=== PATIENT | female | born 1985 | race Caucasian/White ===

== ENCOUNTER → 2020-03-02 | Outpatient (CLI) | payer OTHER | LOC: M PLALAB 14:23 | PROVIDERS: ATTEND Advanced Practice Midwife | DX: Z36.89 Encounter for other specified antenatal screening (principal) ==

== ENCOUNTER → 2020-03-30 | Outpatient (CLI) | payer OTHER ==
[2020-03-30 21:50] LABS: CHLAMYDIA DNA AMPLIFICATION NEGATIVE (NEGATIVE); GC DNA AMPLIFICATION NEGATIVE (NEGATIVE)
--- NOTE | 2020-03-31 02:04 | REP ---
Clinical: Anatomical evaluation. Comparison: None . Findings: Examination demonstrates a single live intrauterine in transverse (head to maternal right) presentation. motion is identified by technologist. Placenta is noted anterior and grade zero without evidence for placenta previa or abruption. Amniotic fluid volume is normal. Cervix measures 4.3 cm in length and appears closed. No evidence for nuchal cord. Gestational age by current measurements 17 weeks 6 days with DILLON 09/01/2020 . FHR equals 146 beats per minute. BPD 4.0 cm 18 weeks 1 day HC 15.0 cm 18 weeks 0 days AC 12.3 cm 18 weeks 0 days FL 2.6 cm 17 weeks 6 days HL 2.5 cm 17 weeks 6 days HC/AC ratio 1.21 Estimated weight 215 grams ( 49th percentile). Anatomical assessment demonstrates normal structures including cranium, choroid plexus, cavum, cerebellum/posterior fossa, facial features, lungs, four-chamber heart/ventricular outflow tracts, diaphragm, stomach, cord insertion/three-vessel cord, kidneys/bladder, and extremities. Impression: Single live intrauterine in transverse lie demonstrating appropriate estimated weight. Limited evaluation of the spine. Remainder of the anatomical assessment is complete and normal.
== END ==
LOC: M WHC 14:28
PROVIDERS: ATTEND Advanced Practice Midwife
DX: O09.522 Supervision of elderly multigravida, second trimester (principal); Z3A.17 17 weeks gestation of pregnancy

== ENCOUNTER → 2020-03-30 | Outpatient (REF) | payer OTHER ==
[2020-03-30 17:49] LABS: HEMATOCRIT 32.7 % (36.0-47.0); HEMOGLOBIN 10.8 g/dl (12.0-15.5); MEAN CORPUSCULAR HEMOGLOBIN 28.7 pg (27.0-33.0); PLATELET COUNT, AUTOMATED 269 10^3/uL (150-450); RED BLOOD COUNT 3.76 10^6/uL (4.00-5.40); WHITE BLOOD COUNT 7.8 10^3/uL (4.0-10.0)
[2020-03-31 11:14] LABS: HEPATITIS B SURFACE ANTIGEN NEGATIVE (NEGATIVE); HIV 1&2 SCREEN CENTAUR NEGATIVE (NEGATIVE)
== END ==
LOC: M PLALAB 15:55
PROVIDERS: ATTEND Advanced Practice Midwife
DX: O09.521 Supervision of elderly multigravida, first trimester (principal)

== ENCOUNTER → 2020-07-03 | Outpatient (CLI) | payer OTHER ==
[~2020-07-03] MED LIST: COLA100C5 PO; IBUP80TA PO; IRON325T2 PO; MAPA500T2 PO; PERCOCET PO
--- NOTE | 2020-08-04 07:56 | REP ---
OBSTETRIC ULTRASOUND CLINICAL: Follow-up anatomical assessment. COMPARISON: 06/02/2020. TECHNIQUE: Real-time obstetrical ultrasound using probed Array transducer with color Doppler evaluation. FINDINGS: Viable intrauterine identified in cephalic presentation. motion was identified by technologist. The placenta is anterior and grade 2 without evidence for placenta previa or abruption. Amniotic fluid volume is lower limits of normal (LISSETT equals 9.6). Current biometrical measurements correspond to 31 weeks 5 days gestational age with estimated date of delivery 09/01/2020. Estimated weight 1811 grams (46th percentile). heart rate equals 134 beats per minute. Anatomical assessment demonstrates normal spine, stomach, kidneys/bladder, three-vessel cord, and cord insertion. IMPRESSION: * Single live advanced gestation in cephalic presentation. * Amniotic fluid is lower normal. * In conjunction with the prior examination anatomical assessment is complete and normal. No gross anatomical abnormalities are identified. MTDD
== END ==
LOC: M WHC 07:02
PROVIDERS: ATTEND Specialist
DX: Z34.82 Encounter for supervision of other normal pregnancy, second trimester (principal)

== ENCOUNTER → 2020-07-31 | Outpatient (CLI) | payer OTHER ==
[2020-07-31 11:10] LABS: HEMATOCRIT 36.9 % (36.0-47.0); HEMOGLOBIN 11.6 g/dl (12.0-15.5); MEAN CORPUSCULAR HEMOGLOBIN 27.3 pg (27.0-33.0); MEAN CORPUSCULAR HGB CONC 31.4 g/dl (32.0-36.5); MEAN CORPUSCULAR VOLUME 86.8 fl (80.0-96.0); PLATELET COUNT, AUTOMATED 218 10^3/uL (150-450); RED BLOOD COUNT 4.25 10^6/uL (4.00-5.40); WHITE BLOOD COUNT 8.5 10^3/uL (4.0-10.0)
== END ==
LOC: M PLALAB 07:52
PROVIDERS: ATTEND Obstetrics & Gynecology
DX: O99.019 Anemia complicating pregnancy, unspecified trimester (principal); D64.9 Anemia, unspecified; Z3A.00 Weeks of gestation of pregnancy not specified

== ENCOUNTER → 2020-08-01 | Outpatient (CLI) | payer OTHER ==
--- NOTE | 2020-08-11 10:01 | REP ---
FOLLOW-UP OBSTETRICAL ULTRASOUND COMPARISON: 07/03/2020. FINDINGS: Ultrasound examination demonstrates a single live intrauterine in cephalic presentation. Placenta noted anteriorly and grade 2 without placenta previa or abruption. Amniotic fluid volume is normal. Gestational age by last menstrual period (LMP) 35 weeks 4 days with estimated date of delivery 09/01/2020. Gestational age by current measurements 35 weeks 0 days with estimated date of delivery 09/05/2020. heart rate 135 beats per minute. HC/AC ratio 1.00. Estimated weight 2627 grams (55th percentile). Amniotic fluid index (LISSETT) 10.4 cm (7.9-24.9). IMPRESSION: Single live advanced gestational age in cephalic presentation demonstrating appropriate estimated weight and interval growth. No gross abnormalities are identified. Amniotic fluid volume is normal. MTDD
== END ==
LOC: M WHC 07:44
PROVIDERS: ATTEND Obstetrics & Gynecology
DX: Z34.83 Encounter for supervision of other normal pregnancy, third trimester (principal); Z3A.35 35 weeks gestation of pregnancy

== ENCOUNTER 2020-08-02 17:39 | Outpatient (CLI) | payer OTHER ==
[~2020-08-02] VITALS: Ht 172.7 cm; Wt 78.2 kg
[2020-08-02 18:03] VITALS: BP 109/59
[2020-08-02] MEDS ORDERED: IRON325T2 PO (18:17)
[2020-08-02] MEDS ORDERED: COLA100C5 PO (18:17)
[2020-08-02] MEDS ORDERED: MAPA500T2 PO (18:17)
[2020-08-02 18:40] VITALS: BP 119/71
== END 2020-08-02 18:52 | disposition home or self-care (01) ==
LOC: M LDO 17:39
PROVIDERS: ATTEND Advanced Practice Midwife
DX: O47.03 False labor before 37 completed weeks of gestation, third trimester (principal); Z3A.35 35 weeks gestation of pregnancy
CPT/HCPCS: 59025; G0378; G0463

== ENCOUNTER → 2020-08-09 | Outpatient (REF) | payer OTHER | LOC: M SFHCWAGY 13:13 | PROVIDERS: ATTEND Obstetrics & Gynecology | DX: Z34.83 Encounter for supervision of other normal pregnancy, third trimester (principal); Z3A.00 Weeks of gestation of pregnancy not specified ==

== ENCOUNTER → 2020-08-16 | Outpatient (CLI) | payer OTHER | LOC: M LABSMTC 09:45 | PROVIDERS: ATTEND Anesthesiology | DX: Z11.59 Encounter for screening for other viral diseases (principal) ==

== ENCOUNTER 2020-08-18 05:23 | Inpatient (IN) | payer OTHER ==
[~2020-08-18] VITALS: Ht 172.7 cm; Wt 79.7 kg
[2020-08-18] VITALS (9 sets, daily range): BP systolic 99–120; BP diastolic 50–76
[~2020-08-18 05:23] MED LIST changes: -IBUP80TA PO; -PERCOCET PO
[2020-08-18 06:21] LABS: HEMATOCRIT 37.1 % (36.0-47.0); HEMOGLOBIN 11.9 g/dl (12.0-15.5); MEAN CORPUSCULAR HEMOGLOBIN 27.5 pg (27.0-33.0); MEAN CORPUSCULAR HGB CONC 32.1 g/dl (32.0-36.5); MEAN CORPUSCULAR VOLUME 85.7 fl (80.0-96.0); PLATELET COUNT, AUTOMATED 219 10^3/uL (150-450); RED BLOOD COUNT 4.33 10^6/uL (4.00-5.40); WHITE BLOOD COUNT 7.9 10^3/uL (4.0-10.0)
[2020-08-18] MEDS ORDERED: LACTATED RINGER'S 1000 ML IV STA (06:32)
[2020-08-18] MEDS ORDERED: LR 1,000 ML IV SCH ×2 (06:32→10:00)
[2020-08-18] MEDS ORDERED: BICITRA 30ML SOLN UDC PO ONE (06:45)
[2020-08-18] MEDS ORDERED: MORPHINE PRES-FREE INJ 10 MG/10 ML VIAL (J2274) As Ordered ONE (07:14)
[2020-08-18] MEDS ORDERED: OXYTOCIN INJ 10 UNITS/ML VIAL (J2590) As Ordered ONE ×2 (07:17→07:18)
[2020-08-18] MEDS ORDERED: ceFAZolin 2 GM/D5W 50 ML IV BAG (J0690 PER 500MG) As Ordered ONE (07:19)
--- NOTE | 2020-08-18 07:43 | HPEPDOC ---
Obstetrical History & Physical General Date of Admission Aug 18, 2020 at 05:23 History of Present Illness 35-year-old at 38+0 weeks gestation. Presents for a repeat LTCS / BTL. She denies vaginal bleeding, loss of fluid or painful, frequent uterine contractions. She reports regular movement. She denies headache, visual changes, right upper quadrant pain, shortness of breath or chest pain. course complicated by: Concern for uterine window; persistent increasing pelvic / lower abdominal pain, history of uterine window in previous . AMA: NIPT low risk. Chief Complaint: section Care Care: Good Care Past Medical History Past Medical History Medical History PMH: Tam's palsy Surgical history: Low transverse section 4 Social history: Former smoker, no EtoH/drug use Famhx: MS (father) ALL: PCN (childhood, rash) [employer]: none OB: LTCS x 4. Possible uterine window at 37 weeks last . Social History Psychosocial History: No pertinent psych hx * Smoker: non-smoker Alcohol: Denies Drugs: denies Allergies Coded Allergies: Penicillins (Verified Allergy, Intermediate, HIVES, 08/02/20) Medications Scheduled Docusate Sodium (Colace) 100 Mg Capsule, 1 CAP PO BID Ferrous Sulfate (Iron) 325 Mg Tablet, 1 TAB PO TID Scheduled PRN Acetaminophen (Mapap) 500 Mg Tablet, 1,000 MG PO Q6HP PRN for PAIN OR FEVER Physical Examination Physical Examination GENERAL: Alert and oriented times three. ABDOMEN: Gravid and non-tender to touch. FETUS: vertex (VTX) by Master. HEART RATE: Regular rate and rhythm. LUNGS: Clear to auscultation (CTA). EXTREMITIES: No edema. No clonus. EFM: FHR category 1 [place]: Contraction pattern not present Vital Signs/I&O Vital Signs Date Time Temp Pulse Resp B/P (MAP) Pulse Ox O2 Delivery O2 Flow Rate FiO2 08/18/20 05:53 97.5 76 120/76 (91) Laboratory Data 24H LABS Laboratory Tests 2 08/17/20 22:14: Serology Scanned Report Hepatitis B Testing 08/18/20 06:08: Nucleated Red Blood Cells % (auto) 0.0 CBC/BMP Laboratory Tests 08/18/20 06:08 Assessment Heart Rate (FHR): 140 Variability: Moderate Accelerations: Positive Decelerations: None Tocometer Contractions: No Assessment/Plan Assessment 35-year old at 38+0 weeks gestation. Dx: Concern for uterine window/dehiscence, satisfied parity. Reassuring maternal and status. Plan Admit and orient. Silk Folder and consent. RLTCS/BTL Ancef 2g IV HARESH EISENBERG DO Aug 18, 2020 07:43
[2020-08-18] MEDS ORDERED: ONDANSETRON 4MG/2ML VIAL IV PRN ×2 (07:44→10:00)
[2020-08-18] MEDS ORDERED: diphenhydrAMINE 50MG/ML VIAL (J1200) IV PRN (07:44)
[2020-08-18] MEDS ORDERED: METOCLOPRAMIDE INJ 10MG/2ML VIAL (J2765 PER 1) IV PRN ×2 (07:44→10:00)
[2020-08-18] MEDS ORDERED: NALBUPHINE HCL 10 MG/ML AMP (J2300) IV PRN (07:44)
[2020-08-18] MEDS ORDERED: NALOXONE INJ 0.4MG/1ML VIAL (J2310 PER 1MG) IV PRN ×2 (07:44)
[2020-08-18] MEDS ORDERED: KETOROLAC 60MG 2ML VIAL As Ordered ONE (08:14)
[2020-08-18] MEDS ORDERED: dexameTHASONE 4 MG/ML 1ML VIAL (J1100 PER 1MG) As Ordered ONE (08:14)
[2020-08-18] MEDS ORDERED: ONDANSETRON 4MG/2ML VIAL As Ordered ONE (08:14)
[2020-08-18] MEDS ORDERED: OXYTOCIN DRIP 30 UNITS in IV 1 EA IV SCH (09:20)
[2020-08-18] MEDS ORDERED: OXYTOCIN 30 UNITS IN 0.9% NaCl 500ML IV BAG (J2590) As Ordered ONE (09:20)
[2020-08-18] MEDS ORDERED: IBUP80TA PO (09:24)
[2020-08-18] MEDS ORDERED: COLA100C5 PO (09:25)
[2020-08-18] MEDS ORDERED: PERCOCET PO (09:26)
[2020-08-18] MEDS ORDERED: KETOROLAC 30 MG/ML 1ML VIAL IV SCH (09:30)
[2020-08-18] MEDS ORDERED: RHOGAM 300 MCG (1500 IU) INJ (J2790) IM SCH (09:30)
[2020-08-18] MEDS ORDERED: ONDANSETRON 4 MG TAB PO PRN (09:30)
[2020-08-18] MEDS ORDERED: PROMETHAZINE 25 MG TAB PO PRN (09:30)
[2020-08-18] MEDS ORDERED: MEASLES,MUMPS,RUBELLA VACCINE INJ (MMR-II) (90707) SC SCH (09:30)
[2020-08-18] MEDS ORDERED: ACETAMINOPHEN 500 MG TAB PO PRN (09:30)
[2020-08-18] MEDS ORDERED: fentaNYL 100 MCG/2 ML INJECTION (J3010) IV PRN (10:00)
[2020-08-18] MEDS ORDERED: PERCOCET 5MG/325MG TAB PO PRN (10:00)
[2020-08-18] MEDS ORDERED: PERCOCET 5MG/325MG TAB As Ordered ONE (10:03)
[2020-08-18] MEDS ORDERED: fentaNYL 100 MCG/2 ML INJECTION (J3010) As Ordered ONE (10:03)
[2020-08-18] MEDS: PERCOCET 5MG/325MG TAB PO PRN ×2 (10:14→18:14)
[2020-08-18] MEDS: LR 1,000 ML IV SCH ×2 (12:27→17:20)
[2020-08-18] MEDS: KETOROLAC 30 MG/ML 1ML VIAL IV SCH ×2 (14:58→20:48)
[2020-08-18] MEDS: PRENATAL VITAMINS CHEWABLE TABLET PO SCH (17:32)
[2020-08-18] MEDS: DOCUSATE SODIUM 100 MG CAP PO SCH (20:48)
[2020-08-19] VITALS (7 sets, daily range): BP systolic 102–117; BP diastolic 52–68
[2020-08-19] MEDS: LR 1,000 ML IV SCH (01:20)
[2020-08-19] MEDS: KETOROLAC 30 MG/ML 1ML VIAL IV SCH (02:25)
[2020-08-19] MEDS ORDERED: ceFAZolin SOD 2 GM in IV 1 EA IV ONE (06:00)
[2020-08-19 06:15] LABS: HEMATOCRIT 29.7 % (36.0-47.0); MEAN CORPUSCULAR HEMOGLOBIN 28.4 pg (27.0-33.0); MEAN CORPUSCULAR HGB CONC 32.3 g/dl (32.0-36.5); MEAN CORPUSCULAR VOLUME 87.9 fl (80.0-96.0); PLATELET COUNT, AUTOMATED 185 10^3/uL (150-450); RED BLOOD COUNT 3.38 10^6/uL (4.00-5.40); WHITE BLOOD COUNT 11.5 10^3/uL (4.0-10.0)
[2020-08-19] MEDS: PERCOCET 5MG/325MG TAB PO PRN ×2 (06:21→17:09)
[2020-08-19 06:28] LABS: HEMOGLOBIN 9.6 g/dl (12.0-15.5)
[2020-08-19] MEDS ORDERED: INFLUENZA QUADRIVALENT PF VACCINE 0.5ML SYRINGE IM ONE (09:00)
[2020-08-19] MEDS: DOCUSATE SODIUM 100 MG CAP PO SCH ×2 (09:49→21:00)
[2020-08-19] MEDS: PRENATAL VITAMINS CHEWABLE TABLET PO SCH (09:49)
[2020-08-19] MEDS: IBUPROFEN 800 MG TAB PO SCH ×2 (12:32→19:53)
[2020-08-20 02:00] VITALS: BP 117/58
[2020-08-20] MEDS: IBUPROFEN 800 MG TAB PO SCH ×2 (03:20→11:30)
[2020-08-20] MEDS: PERCOCET 5MG/325MG TAB PO PRN ×2 (04:43→09:10)
[2020-08-20 05:59] VITALS: BP 110/54
[2020-08-20] MEDS: PRENATAL VITAMINS CHEWABLE TABLET PO SCH (08:05)
[2020-08-20] MEDS: DOCUSATE SODIUM 100 MG CAP PO SCH (08:05)
--- NOTE | 2020-08-20 08:43 | DS.PDOC ---
Discharge Summary General Date of Admission Aug 18, 2020 at 05:23 Date of Discharge 08/20/20 Attending Physician: HARESH MCCONNELL DO Discharge Summary PROCEDURES PERFORMED DURING STAY: [None]. ADMITTING DIAGNOSES: 1. 38 weeks, prior x 5 DISCHARGE DIAGNOSES: 1. delivered COMPLICATIONS/CHIEF COMPLAINT: Previous Section,History Uterine Window... HISTORY OF PRESENT ILLNESS: 35 yo at 38 0/7 weeks presents for repeat section. She had 5 prior sections. She had a peritoneal window/uterine dehiscence with her last . HOSPITAL COURSE: On 08/18/20 the patient underwent repeat and BTL by Dr. Mcconnell. There were no complications. her course was unremarkable. She had adequate return of bladder and bowel function .She was deemed stable for discharge on day#2.. DISCHARGE MEDICATIONS: Please see below. ALLERGIES: Please see below. PHYSICAL EXAMINATION ON DISCHARGE: VITAL SIGNS: Please see below. GENERAL: NAD HEENT: WNL NECK: WNL CARDIOVASCULAR EXAMINATION: RRR RESPIRATORY EXAMINATION: CTA ABDOMINAL EXAMINATION: NT, Dressing c/d/i, FF EXTREMITIES: NT LABORATORY DATA: Please see below. ACTIVITY: [As tolerated]. DIET: regular DISCHARGE PLAN: Discharge today. Instructions reviewed. Pain management ar ranged. fu [address] Mcconnell. DISCHARGE INSTRUCTIONS: 1. reviewed DISCHARGE CONDITION:Stable. TIME SPENT ON DISCHARGE: Greater than 10 minutes. Vital Signs/I&Os Vital Signs Date Time Temp Pulse Resp B/P (MAP) Pulse Ox O2 Delivery O2 Flow Rate FiO2 08/20/20 05:59 97.7 66 18 110/54 (72) 96 08/20/20 02:00 Room Air Discharge Medications Scheduled Docusate Sodium (Colace) 100 Mg Capsule, 1 CAP PO BID Ibuprofen (Ibuprofen) 800 Mg Tablet, 1 TAB PO TID for pain Scheduled PRN Oxycodone/Acetaminophen (Oxycodone-Acetaminophen 5-325) 1 Each Tablet, 1 TAB PO Q4H PRN for MILD/MODERATE PAIN (PS 1-7) Allergies Coded Allergies: Penicillins (Verified Allergy, Intermediate, HIVES, 08/02/20) CONNOR SANTA MD Aug 20, 2020 08:43
[2020-08-20] MEDS ORDERED: INFLUENZA QUADRIVALENT PF VACCINE 0.5ML SYRINGE IM ONE (09:00)
--- NOTE | 2020-09-13 13:44 | ROOPDOC ---
[facility] Report Of Operation Report of Operation DATE OF PROCEDURE: 08/18/2020 PREPROCEDURE DIAGNOSES: 38+ weeks gestation, concern for uterine window/dehiscence, history of low transverse section 4, history of uterine window with prior section POSTPROCEDURE DIAGNOSES: Same as preoperative; thin, attenuated lower uterine segment. PROCEDURE: Repeat low transverse section with Foot Of Ten bilateral tubal ligation. SURGEON: Rashaad Mcconnell DO FACOG FISH HATCHERY SUPERVISOR: Curtis Jason CNM (Essential role in retraction, extraction, and closure of all tissue layers) ANESTHESIA: Spinal with Duramorph ESTIMATED BLOOD LOSS: 500 mL. IV FLUIDS: 1000 mL LR URINE OUTPUT: 300 mL COMPLICATIONS: None. FINDINGS: Thin attenuated lower uterine segment, but no dehiscence. PREOPERATIVE ANTIBIOTICS: Ancef 2g IV x 1, [Azithromycin 500mg IV]. COMPLICATIONS: none DATA: Apgars 9 and 9. Female. SPECIMENS: right and left fallopian tubal segments. PRIMARY INDICATION FOR : h/o LTCS x 4 DESCRIPTION OF PROCEDURE: The patient was counseled on the risks, benefits, indications and alternatives of the procedure. Informed consent was obtained. She was taken to the operating room with IV running and placed on the operating table in the dorsal supine position with a leftward tilt. Regional anesthesia/epidural was bolused and found to be adequate. Sequential compression devices were placed on the lower extremities. A Cordoba catheter was placed under sterile conditions. She was prepared and draped in normal sterile fashion. A time out was performed per protocol. Epidural anesthesia was again found to be adequate. A Pfannenstiel skin incision was made with the 10 blade. The 10 blade was used to dissect down to the level of the rectus sheath fascia. The rectus sheath pressure was incised midline and this was extended bilaterally with Andrade scissor s , and manual stretch. The rectus muscle bellies were dissected off the rectus sheath fascia superiorly and inferiorly using both sharp and blunt dissection. The midline was identified. The peritoneum was identified and entered digitally. The peritoneal opening was extended with manual stretch. The Mobius retractor was placed. The vesicouterine peritoneum was dissected with Metzenbaum scissors to create the bladder flap. A low transverse uterine incision was made with the 10 blade. This was extended with manual stretch. The amniotic sac was punctured, and clear fluid was noted. The head delivered through the hysterotomy without difficulty. The remainder of the body delivered with ease. The cord was doubly clamped and cut, and the baby was handed off to awaiting care. data shown above. The placenta was removed manually. The intrauterine cavity was cleared of all clot and debris. The hysterotomy was closed with 0 Vicryl in running locked fashion. This was reinforced with a second imbricating layer using 0 Vicryl in running fashion. Excellent hemostasis of the hysterotomy was noted. The right and left fallopian tubes were followed out to the fimbriated end. A ligation was performed on each fallopian tube using the following technique (Jasiel): The ampullary portion of each was grasped with a Yesenia and elevated. A peritoneal window was created with Bovie along the mesosalpinx. Plain gut suture was used to tie two locations of the fallopian tube at the ends of the created window. The approximate 2-3cm intervening segment of fallopian tube was excised with Metzenbaum scissors. Bovie cautery was used to obliterate the lumen of the fallopian tube on each cut end, and to ensure hemostasis. Excellent hemostasis was noted. The pelvis was irrigated and the fluid suctioned. The Mobius retractor was removed. The peritoneum was closed with 3-0 Vicryl running fashion. The rectus muscle bellies were reapproximated with interrupted stitches using 3-0 Vicryl. The rectus muscles bellies were hemostatic. The rectus sheath fascia was closed with 0 Vicryl running fashion. The subcutaneous layer was irrigated and the fluid suctioned. Small bleeding vessels were cauterized with Bovie. Excellent hemostasis was noted. The subcutaneous layer was reapproximated with 3-0 Vicryl running fashion. Skin was closed with 3-0 Monocryl in subcuticular fashion. An Optifoam bandage was placed over the closed incision. Sponge, needle and instrument counts were correct per protocol throughout the procedure. The patient tolerated the entire procedure very well. She was transferred to the PACU in stable condition. DO MARGA Padilla JONATHAN R. DO Sep 13, 2020 13:44
== END 2020-08-20 11:40 | disposition home or self-care (01) | DRG 785 ==
LOC: M LDI 05:23 → M OBS 13:54
PROVIDERS: ADMIT Obstetrics & Gynecology; ATTEND Obstetrics & Gynecology
PROC: 0UB70ZZ Excision of Bilateral Fallopian Tubes, Open Approach (ICD-10-PCS; 2020-08-18)
PROC: 10D00Z1 Extraction of Products of Conception, Low, Open Approach (ICD-10-PCS; principal; 2020-08-18 07:30)
DX: O34.211 Maternal care for low transverse scar from previous cesarean delivery (principal); Z3A.38 38 weeks gestation of pregnancy; Z37.0 Single live birth; Z30.2 Encounter for sterilization

== ENCOUNTER → 2020-12-19 | Outpatient (REF) | payer OTHER ==
[~2020-12-19] MED LIST changes: +IBUP80TA PO; +PERCOCET PO
== END ==
LOC: M SFHCWAGY 13:49
PROVIDERS: ATTEND Obstetrics & Gynecology
DX: Z12.4 Encounter for screening for malignant neoplasm of cervix (principal); Z01.419 Encounter for gynecological examination (general) (routine) without abnormal findings

== ENCOUNTER → 2021-02-05 | Outpatient (REF) | payer OTHER | LOC: M SFHCWAGY 17:07 | PROVIDERS: ATTEND Obstetrics & Gynecology | DX: R87.610 Atypical squamous cells of undetermined significance on cytologic smear of cervix (ASC-US) (principal) ==

== ENCOUNTER → 2022-08-08 | Outpatient (CLI) | payer OTHER | LOC: M PAIN 09:00 | PROVIDERS: ATTEND Nurse Practitioner Family | DX: Z53.21 Procedure and treatment not carried out due to patient leaving prior to being seen by health care provider (principal) ==

== ENCOUNTER → 2022-12-17 | Outpatient (REF) | payer OTHER | LOC: M PLALAB 15:12 | PROVIDERS: ATTEND Obstetrics & Gynecology | DX: Z12.4 Encounter for screening for malignant neoplasm of cervix (principal) | CPT/HCPCS: 87624; G0123 ==

== ENCOUNTER → 2024-04-07 | Outpatient (REF) | payer OTHER | LOC: M PLALAB 16:11 | PROVIDERS: ATTEND Advanced Practice Midwife | DX: Z12.4 Encounter for screening for malignant neoplasm of cervix (principal) | CPT/HCPCS: 87624; G0123 ==

== ENCOUNTER 2025-06-16 12:09 | Day surgery (SDC) | payer OTHER ==
[~2025-06-16] VITALS: Ht 172.7 cm; Wt 69.2 kg
[2025-06-16] MEDS: LIDOCAINE 3.5% 1 ML OPHTH TOPICAL GEL OU ONE (06:00)
[~2025-06-16 12:09] MED LIST changes: +ERGO500029 PO; +HYDR1CAP25 PO
[2025-06-16] MEDS ORDERED: MIDAZOLAM INJ 2 MG/2 ML VIAL As Ordered ONE (12:55)
[2025-06-16] MEDS: POVIDONE-IODINE 5% OPHTH PREP SOL 30ML As Ordered ONE (14:17)
[2025-06-16] MEDS: LIDOCAINE 2% W/EPINEPHrine 20 ML VIAL **PRES FREE As Ordered ONE (14:31)
[2025-06-16] MEDS: TOBRADEX OPHTH OINT 3.5 GM As Ordered ONE (14:31)
[2025-06-16 15:00] VITALS: BP 116/72; TEMP 97.4; O2SAT 100
== END 2025-06-16 15:12 | disposition home or self-care (01) ==
LOC: M SDC 12:09
PROVIDERS: ATTEND Ophthalmology
DX: H02.834 Dermatochalasis of left upper eyelid (principal); H02.831 Dermatochalasis of right upper eyelid; Z88.0 Allergy status to penicillin
CPT/HCPCS: 15822; 88300; J2250; J3010